=== PATIENT | female | born 1970 | race Caucasian/White ===

== ENCOUNTER 2017-01-24 13:37 | Emergency (ER) | payer SELFPAY ==
[~2017-01-24] VITALS: Wt 113.6 kg
[2017-01-24] MEDS ORDERED: CARTIA XT180 MG PO (13:50)
[2017-01-24] MEDS ORDERED: TRIAMTERENE AND1 TAB PO (13:50)
[2017-01-24] MEDS ORDERED: GABAPENTIN400 M2 PO (13:51)
[2017-01-24] MEDS ORDERED: ROBAXIN-750750 MG PO (13:51)
[2017-01-24] MEDS ORDERED: DICLOFENAC POT.50 MG PO (13:52)
[2017-01-24] MEDS ORDERED: MS CONTIN 115 MG/TAB PO (13:52)
[2017-01-24] MEDS ORDERED: BREO ELLIPTA1 POW IH (13:53)
[2017-01-24] MEDS ORDERED: PERCOCET 325 MG1 TA2 PO (13:53)
[2017-01-24] MEDS ORDERED: ATIVAN1 M1 PO (13:54)
[2017-01-24] MEDS ORDERED: SPIRIVA RE2.5 MCG/Ac IH (13:54)
[2017-01-24] MEDS ORDERED: ZOFRAN ODT8 M1 PO (17:37)
[2017-01-24 17:54] VITALS: BP 136/88
== END 2017-01-24 17:50 | disposition home or self-care (01) ==
LOC: ED 13:37
DX: R10.13 Epigastric pain (principal); R07.9 Chest pain, unspecified; R11.0 Nausea; R63.0 Anorexia; I11.0 Hypertensive heart disease with heart failure; I50.9 Heart failure, unspecified; J44.9 Chronic obstructive pulmonary disease, unspecified; F41.9 Anxiety disorder, unspecified
CPT/HCPCS: J1885; Q9967

== ENCOUNTER 2019-11-19 21:05 | Emergency (ER) | payer OTHER ==
[~2019-11-19] VITALS: Ht 165.1 cm; Wt 115.9 kg
[~2019-11-19 21:05] MED LIST: ATIVAN1 M1 PO; BREO ELLIPTA1 POW IH; CARTIA XT180 MG PO; DICLOFENAC POT.50 MG PO; GABAPENTIN400 M2 PO; MS CONTIN 115 MG/TAB PO; PERCOCET 325 MG1 TA2 PO; ROBAXIN-750750 MG PO; SPIRIVA RE2.5 MCG/Ac IH; TRIAMTERENE AND1 TAB PO; ZOFRAN ODT8 M1 PO
[2019-11-19] MEDS ORDERED: TRELEGY ELLIPT1 EACH IH (21:16)
[2019-11-19] MEDS ORDERED: TOPROL XL 25MG25 MG PO (21:17)
[2019-11-19] MEDS ORDERED: TRIAMTERENE AND1 CAP PO (21:17)
[2019-11-19] MEDS ORDERED: REQUIP3 M1 PO (21:17)
[2019-11-19] MEDS ORDERED: PROAIR HFA0.09 MG/AC IH (21:18)
[2019-11-19 22:29] LABS: EOS # 0.1 (0.04-0.40); EOS % 1.2 % (1.0-5.0); HEMATOCRIT 40.1 % (37.0-47.0); HEMOGLOBIN 12.9 g/dL (12.5-16.0); LYMPH# 2.5 (1.50-4.00); MEAN CELL VOLUME 81 fl (78-100); MEAN CORPUSCULAR HEMOGLOBIN 26 pg (27-31); MEAN CORPUSCULAR HGB CONC 32 g/dL (33-37); MEAN PLATELET VOLUME 10.6 fl (7.4-10.4); MONO # 0.7 (0.20-0.80); NEU # 4.4 (1.40-6.50); PLATELET COUNT 290 K/mm3 (130-400); RED BLOOD COUNT 4.98 M/mm3 (4.10-5.30); RED CELL DISTRIBUTION WIDTH 15.6 % (11.5-14.5); WHITE BLOOD COUNT 7.8 K/mm3 (4.8-10.8)
[2019-11-19 22:37] LABS: ALBUMIN 4.1 g/dL (3.5-5.0); POTASSIUM 3.6 mmol/L (3.5-5.1); SODIUM 141 mmol/L (136-145)
[2019-11-19 22:38] LABS: URINE WBC 0 /hpf (0-3)
[2019-11-19 22:38] LABS: CALCIUM 9.5 mg/dL (8.3-10.5)
[2019-11-19 22:39] LABS: GLUCOSE 93 mg/dL (65-105)
[2019-11-19 22:41] LABS: CARBON DIOXIDE 22 mmol/L (22-29); TOTAL BILIRUBIN 0.4 mg/dL (0.2-1.2)
[2019-11-19 22:45] LABS: AST-SGOT 13 U/L (5-34); D-DIMER 0.67 mg/L FEU (0.15-0.50)
[2019-11-19 22:46] LABS: ALT/SGPT 14 U/L (0-55)
[2019-11-19 22:50] LABS: URINE APPEARANCE CLEAR; URINE COLOR YELLOW
[2019-11-19 22:51] LABS: URINE BILIRUBIN NEGATIVE (NEGATIVE); URINE BLOOD NEGATIVE (NEGATIVE); URINE GLUCOSE NEGATIVE (NEGATIVE); URINE KETONE NEGATIVE (NEGATIVE); URINE LEUKOCYTE ESTERASE NEGATIVE (NEGATIVE); URINE NITRATE NEGATIVE (NEGATIVE); URINE PROTEIN(semi-quant) NEGATIVE (NEGATIVE); URINE UROBILINOGEN NORMAL (NORMAL)
[2019-11-19 22:52] LABS: TROPONIN-I < 0.03 ng/mL (<0.030)
[2019-11-20] MEDS ORDERED: CRESTOR20 MG PO (00:58)
[2019-11-20] MEDS ORDERED: ONDANSETRON ODT8 MG PO (03:38)
[2019-11-20] MEDS ORDERED: PROTONIX20 M1 PO (03:38)
[2019-11-20 03:56] VITALS: BP 143/76
== END 2019-11-20 03:56 | disposition home or self-care (01) ==
LOC: ED 21:05
PROVIDERS: Nurse Practitioner Family
DX: R07.89 Other chest pain (principal); I10 Essential (primary) hypertension; R11.0 Nausea; K21.9 Gastro-esophageal reflux disease without esophagitis; I25.10 Atherosclerotic heart disease of native coronary artery without angina pectoris; E78.5 Hyperlipidemia, unspecified; Z90.89 Acquired absence of other organs; Z90.49 Acquired absence of other specified parts of digestive tract; J44.9 Chronic obstructive pulmonary disease, unspecified; Z95.9 Presence of cardiac and vascular implant and graft, unspecified; Z86.19 Personal history of other infectious and parasitic diseases; Z79.51 Long term (current) use of inhaled steroids
CPT/HCPCS: C9113; J1885; J2270; J2405; J7030; Q9967

== ENCOUNTER 2020-09-01 06:53 | Emergency (ER) | payer OTHER ==
[~2020-09-01 06:53] MED LIST changes: +CRESTOR20 MG PO; +ONDANSETRON ODT8 MG PO; +PROAIR HFA0.09 MG/AC IH; +PROTONIX20 M1 PO; +REQUIP3 M1 PO; +TOPROL XL 25MG25 MG PO; +TRELEGY ELLIPT1 EACH IH; +TRIAMTERENE AND1 CAP PO
[2020-09-01 07:46] LABS: HEMATOCRIT 44.2 % (37.0-47.0); HEMOGLOBIN 14.3 g/dL (12.5-16.0); MEAN CELL VOLUME 86 fl (78-100); MEAN CORPUSCULAR HEMOGLOBIN 28 pg (27-31); MEAN CORPUSCULAR HGB CONC 32 g/dL (33-37); RED BLOOD COUNT 5.16 M/mm3 (4.10-5.30); WHITE BLOOD COUNT 7.4 K/mm3 (4.8-10.8)
[2020-09-01 07:47] LABS: EOS # 0.1 (0.04-0.40); EOS % 0.9 % (1.0-5.0); LYMPH# 1.9 (1.50-4.00); MEAN PLATELET VOLUME 10.3 fl (7.4-10.4); MONO # 0.7 (0.20-0.80); NEU # 4.7 (1.40-6.50); PLATELET COUNT 265 K/mm3 (130-400); RED CELL DISTRIBUTION WIDTH 14.1 % (11.5-14.5)
[2020-09-01 07:52] LABS: ALBUMIN 4.2 g/dL (3.5-5.0); POTASSIUM 3.5 mmol/L (3.5-5.1); SODIUM 140 mmol/L (136-145)
[2020-09-01 07:53] LABS: CALCIUM 9.5 mg/dL (8.3-10.5)
[2020-09-01 07:54] LABS: GLUCOSE 94 mg/dL (65-105); TOTAL PROTEIN 7.3 g/dL (6.4-8.3)
[2020-09-01 07:56] LABS: CARBON DIOXIDE 26 mmol/L (22-29); TOTAL BILIRUBIN 0.4 mg/dL (0.2-1.2)
[2020-09-01 08:00] LABS: AST-SGOT 14 U/L (5-34)
[2020-09-01 08:01] LABS: ALT/SGPT 19 U/L (0-55)
[2020-09-01 08:08] LABS: TROPONIN-I < 0.03 ng/mL (<0.030)
[2020-09-01 08:26] LABS: URINE APPEARANCE CLEAR; URINE BILIRUBIN NEGATIVE (NEGATIVE); URINE BLOOD NEGATIVE (NEGATIVE); URINE COLOR YELLOW; URINE GLUCOSE NEGATIVE (NEGATIVE); URINE KETONE NEGATIVE (NEGATIVE); URINE LEUKOCYTE ESTERASE NEGATIVE (NEGATIVE); URINE NITRATE NEGATIVE (NEGATIVE); URINE PROTEIN(semi-quant) NEGATIVE (NEGATIVE); URINE UROBILINOGEN NORMAL (NORMAL)
[2020-09-01] MEDS ORDERED: ONDANSETRON ODT8 MG PO ×2 (09:09)
[2020-09-01] MEDS ORDERED: MOTION SICKNESS25 M5 PO (09:09)
[2020-09-01 10:25] VITALS: BP 124/73
== END 2020-09-01 10:25 | disposition home or self-care (01) ==
LOC: ED 06:53
PROVIDERS: Nurse Practitioner Family
DX: R51.9 Headache, unspecified (principal); R11.0 Nausea; R53.81 Other malaise; R53.83 Other fatigue; R42 Dizziness and giddiness; I10 Essential (primary) hypertension; J44.9 Chronic obstructive pulmonary disease, unspecified; Z20.822 Contact with and (suspected) exposure to COVID-19; Z86.69 Personal history of other diseases of the nervous system and sense organs; Z82.0 Family history of epilepsy and other diseases of the nervous system
CPT/HCPCS: J1885; J2405; J7030

== ENCOUNTER 2021-01-16 14:57 | Emergency (ER) | payer OTHER ==
[~2021-01-16 14:57] MED LIST changes: +MOTION SICKNESS25 M5 PO
[2021-01-16] MEDS ORDERED: DICLOFENAC POT.50 MG PO (15:19)
[2021-01-16] MEDS ORDERED: HCTZ/TRIAMTEREN1 CA2 PO (15:19)
[2021-01-16 16:42] LABS: BASO # 0.04 (0.02-0.10); EOS # 0.03 (0.04-0.40); EOS % 0.3 % (1.0-5.0); HEMOGLOBIN 13.3 g/dL (12.5-16.0); LYMPH# 2.64 (1.50-4.00); MEAN CELL VOLUME 85 fl (78-100); MEAN CORPUSCULAR HEMOGLOBIN 28 pg (27-31); MEAN CORPUSCULAR HGB CONC 32 g/dL (33-37); MEAN PLATELET VOLUME 10.2 fl (7.4-10.4); MONO # 0.93 (0.20-0.80); NEU # 6.61 (1.40-6.50); PLATELET COUNT 284 K/mm3 (130-400); RED BLOOD COUNT 4.82 M/mm3 (4.10-5.30); RED CELL DISTRIBUTION WIDTH 14.2 % (11.5-14.5); WHITE BLOOD COUNT 10.3 K/mm3 (4.8-10.8)
[2021-01-16 17:15] VITALS: BP 122/72
== END 2021-01-16 17:15 | disposition home or self-care (01) ==
LOC: ED 14:57
PROVIDERS: Family Medicine
DX: K11.5 Sialolithiasis (principal); I50.9 Heart failure, unspecified; G43.909 Migraine, unspecified, not intractable, without status migrainosus; M79.7 Fibromyalgia; J44.9 Chronic obstructive pulmonary disease, unspecified; K21.9 Gastro-esophageal reflux disease without esophagitis; Z79.899 Other long term (current) drug therapy